=== PATIENT | male | born 1980 | race Hispanic/Latino ===

== ENCOUNTER 2017-07-26 20:48 | Emergency (ER) | payer SELFPAY ==
[2017-07-26 21:03] VITALS: TEMP 97.6
--- NOTE | 2017-07-26 21:26 | C.PDOC ---
History Of Present Illness 37yo male, brought to ER by EMS after he was found unresponsive in his bathroom. Patient's significant other called 911 and upon arrival, EMS administered 2mg Narcan intranasally to the patient after which he was responsive. Patient states he thought he was using cocaine. He denies any suicidal or homicidal ideation. Time Seen by Provider: 07/26/17 21:26 Chief Complaint (Nursing): Substance Abuse History Per: EMS History/Exam Limitations: no limitations Onset/Duration Of Symptoms: Mins Current Symptoms Are (Timing): Gone Modifying Factor(s): Cocaine Associated Symptoms: denies: Suicidal Thoughts, Suicidal Plan Past Medical History Reviewed: Historical Data, Nursing Documentation, Vital Signs Vital Signs: Last Vital Signs Temp 97.6 F 07/26/17 20:52 Pulse 91 H 07/26/17 23:01 Resp 17 07/26/17 23:01 BP 128/71 07/26/17 23:01 Pulse Ox 95 07/26/17 23:01 - Medical History PMH: No Chronic Diseases Surgical History: No Surg Hx Family History: States: No Known Family Hx - Social History Hx Alcohol Use: No (DENIES) Hx Substance Use: No (DENIES) - Immunization History Hx Tetanus Toxoid Vaccination: No Hx Influenza Vaccination: No Hx Pneumococcal Vaccination: No Review Of Systems Psych: Positive for: Other (substance abuse). Negative for: Suicidal ideation Physical Exam - Physical Exam Appears: No Acute Distress Skin: Warm, Dry Head: Atraumatic, Normacephalic Eye(s): bilateral: Normal Inspection Neck: Supple Chest: Symmetrical Cardiovascular: Rhythm Regular Respiratory: No Rales, No Rhonchi, No Wheezing, Other (dry heaves) Gastrointestinal/Abdominal: Soft, No Tenderness Extremity: Normal ROM Neurological/Psych: Oriented x3 ED Course And Treatment O2 Sat by Pulse Oximetry: 94 Pulse Ox Interpretation: Normal Progress Note: Patient is refusing blood work. Risks explained at length by provider including permanent disability or and patient is still refusing bloodwork. Will be observed in the ER. Reevaluation Time: 23:11 Reassessment Condition: Improved Disposition Counseled Patient/Family Regarding: Studies Performed, Diagnosis, Need For Followup, Rx Given - Disposition Referrals: [facility] [Outside] [facility] [Outside] Disposition: HOME/ ROUTINE Disposition Time: 21:26 Condition: FAIR Additional Instructions: please return if symptoms recur Prescriptions: Naloxone HCl [Narcan] 4 mg NS ONCE PRN #10 spray PRN Reason: heeroin overdose Instructions: Narcotic Overdose (DC) Forms: [facility] (Danish) - Clinical Impression Clinical Impression: Accidental heroin overdose - Scribe Statement The provider has reviewed the documentation as recorded by the Scribe (Caitlin Hollins) Provider Attestation: All medical record entries made by the Scribe were at my direction and personally dictated by me. I have reviewed the chart and agree that the record accurately reflects my personal performance of the history, physical exam, medical decision making, and the department course for this patient. I have also personally directed, reviewed, and agree with the discharge instructions and disposition.
[2017-07-26 23:02] VITALS: BP 128/71; PULSE 91; RESP 17
[2017-07-26 23:14] VITALS: O2SAT 94
== END 2017-07-26 23:34 | disposition home or self-care (01) ==
LOC: C.ER 20:48
DX: T40.1X1A Poisoning by heroin, accidental (unintentional), initial encounter (principal); Y92.89 Other specified places as the place of occurrence of the external cause